=== PATIENT | female | born 1940 | race Caucasian/White ===

== ENCOUNTER 2023-05-18 09:31 | Emergency (ER) | payer MEDICARE ==
[~2023-05-18] VITALS: Ht 175.3 cm; Wt 51.7 kg
[2023-05-18] MEDS ORDERED: LABETALOL HCL 5 MG/ML 20 ML VIAL IVP PRN ×2 (09:45)
[2023-05-18] MEDS ORDERED: SODIUM CHLORIDE 0.9% 100 ML ONE (10:05)
[2023-05-18] MEDS ORDERED: IOHEXOL 350 MG/ML 100 ML VIAL ONE (10:05)
[2023-05-18] MEDS: WATER FOR INJECTION STERILE IV ONE ×2 (10:16→10:21)
[2023-05-18] MEDS: ALTEPLASE IV ONE ×2 (10:16→10:21)
[2023-05-18 10:19] LABS: BASOPHILS % (AUTO) 0.7 % (0.0-2.0); EOSINOPHILS % (AUTO) 2.5 % (1.0-6.0); HEMATOCRIT 34.1 % (36-46); HEMOGLOBIN 10.7 g/dL (12.0-16.0); LYMPHOCYTES # (AUTO) 1.7 K/uL (1.0-4.8); LYMPHOCYTES % (AUTO) 28.3 % (22.0-44.0); MEAN CORPUSCULAR HEMOGLOBIN 28.7 pg (26.0-34.0); MEAN CORPUSCULAR HGB CONC 31.4 G/dL (31.0-37.0); MEAN CORPUSCULAR VOLUME 92 fL (80-100); MONOCYTES # (AUTO) 0.4 K/uL (0.1-1.0); NEUTROPHILS # (AUTO) 3.6 K/uL (1.8-7.7); NEUTROPHILS % (AUTO) 61.5 % (40.0-70.0); PLATELET COUNT (AUTO) 167 K/uL (150-450); RED BLOOD CELL COUNT(AUTO) 3.73 MIL/uL (4.00-5.20); RED CELL DISTRIBUTION WIDTH 15.6 % (11.5-14.5); WHITE BLOOD COUNT (AUTO) 5.9 K/uL (4.5-11.0)
[2023-05-18 10:26] LABS: CALCIUM, TOTAL 8.2 mg/dL (8.8-10.5); CREATININE 1.05 mg/dL (0.60-1.30); POTASSIUM 3.3 mmol/L (3.5-5.1)
[2023-05-18 10:32] LABS: ALBUMIN 2.4 g/dL (3.4-5.0); BILIRUBIN,TOTAL 0.3 mg/dL (0.1-1.0); TOTAL PROTEIN, SERUM 5.5 g/dL (6.4-8.2)
[2023-05-18 10:33] LABS: INR 1.1 (0.9-1.1); PROTHROMBIN TIME 11.1 SEC (9.4-11.6)
[2023-05-18 10:34] LABS: TROPONIN I-HIGH SENSITIVITY 7 ng/L (<51)
[2023-05-18 11:15] VITALS: BP 135/63; PULSE 77; RESP 16; TEMP 98.1; O2SAT 99
== END 2023-05-18 12:13 | disposition short-term general hospital (02) ==
LOC: EMS 09:31
DX: I63.9 Cerebral infarction, unspecified (principal); E44.0 Moderate protein-calorie malnutrition; E87.6 Hypokalemia; Z93.3 Colostomy status; Z87.39 Personal history of other diseases of the musculoskeletal system and connective tissue
CPT/HCPCS: 80053; 84484; 85025; 85610; 85730; 86850; 86900; 86901; 36415; 71045; 70496; 70498; 82948; 37195; 93005; 99291; 70450; J2997 ×2; Q9967; J7050